=== PATIENT | female | born 1975 | race African-American/Black ===

== ENCOUNTER → 2017-04-03 | Outpatient (CLI) | payer OTHER ==
[2015-10-21 08:25] VITALS: BP 109/59
[2017-04-03 17:17] LABS: BASOPHILS % (AUTO) 0.6 % (0.2-1.0); EOSINOPHILS % (AUTO) 0.5 % (0.9-2.9); HEMATOCRIT 27.7 % (36.0-47.0); HEMOGLOBIN 8.7 g/dL (12.0-16.0); LYMPHOCYTES # (AUTO) 1.4 X10^3/uL (1.3-2.9); LYMPHOCYTES % (AUTO) 30.3 % (21.0-51.0); MEAN CORPUSCULAR HEMOGLOBIN 20.9 pg (27.0-34.0); MEAN CORPUSCULAR HGB CONC 31.5 g/dL (33.0-35.0); MEAN CORPUSCULAR VOLUME 66.5 fL (80.0-100.0); MEAN PLATELET VOLUME 7.5 fL (7.4-11.0); MONOCYTES # (AUTO) 0.3 x10^3/uL (0.3-0.8); MONOCYTES % (AUTO) 5.4 % (0.0-13.0); NEUTROPHILS # (AUTO) 2.9 x10^3/uL (2.2-4.8); NEUTROPHILS % (AUTO) 63.2 % (42.0-75.0); PLATELET COUNT 311 X10^3/uL (150.0-450.0); RED BLOOD COUNT 4.17 X10^6/uL (3.5-5.4); RED CELL DISTRIBUTION WIDTH 16.3 % (11.6-16.5); WHITE BLOOD COUNT 4.6 X10^3/uL (3.6-10.0)
[2017-04-03 17:21] LABS: BLOOD UREA NITROGEN 11 mg/dL (7-18); CALCIUM 8.9 mg/dL (8.5-10.1); CARBON DIOXIDE 31.8 mmol/L (21-32); CHLORIDE 105 mmol/L (98-107); SODIUM 141 mmol/L (136-145); eGFR BLACK RACES > 60 (>60); eGFR NON BLACK RACES > 60 (>60)
[2017-04-03 17:45] LABS: HYPOCHROMASIA 2+; MICROCYTOSIS 1+; PLATELET MORPHOLOGY COMMENT NORMAL (NORMAL)
[2017-04-03 17:46] LABS: POIKILOCYTOSIS 1+
== END ==
LOC: LAB 17:00
PROVIDERS: ATTEND Internal Medicine
DX: D64.89 Other specified anemias (principal)
CPT/HCPCS: 36415; 80048; 85025

== ENCOUNTER 2017-10-14 02:34 | Emergency (ER) | payer OTHER ==
[2017-10-14 02:52] VITALS: BP 113/56; BMI 24.1
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
[2017-10-14] MEDS ORDERED: TORADOL 60 MG VIAL IM ONE (03:17)
[2017-10-14] MEDS ORDERED: TORADOL 60 MG VIAL ONE (03:36)
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
== END 2017-10-14 04:15 | disposition home or self-care (01) ==
LOC: ER 02:34
DX: M54.89 Other dorsalgia (principal)
CPT/HCPCS: 72072; 96372; 99282; 99283; J1885

== ENCOUNTER 2017-10-20 08:03 | Emergency (ER) | payer OTHER ==
[2017-10-20 08:09] VITALS: BP 114/55; BMI 21.9
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
[2017-10-20] MEDS ORDERED: TORADOL 60 MG VIAL IM ONE (08:41)
[2017-10-20] MEDS ORDERED: NORFLEX INJ IM ONE (08:41)
[2017-10-20] MEDS ORDERED: NORFLEX INJ ONE (08:44)
[2017-10-20] MEDS ORDERED: TORADOL 60 MG VIAL ONE (08:44)
--- NOTE | 2017-10-20 09:40 | CT ---
HISTORY: Back pain Study: CT lumbar spine without contrast Comparison: None Technique: Multiple axial images of the lumbar spine were obtained from the thoracolumbar junction t o the sacrum without the administration of IV contrast. Sagittal and coronal reformats were performe d and reviewed. Findings: The lumbar vertebral body heights are relatively maintained. No evidence of acute displaced fracture or significant subluxation is identified. Degenerate facet changes are seen throughout the lumbar spi ne. Intervertebral disc space narrowing and vacuum disc phenomenon are noted at L5/S1. Multilevel ost eophytosis is demonstrated as well. Postsurgical changes of the epigastric region are noted. If symp toms or clinical concern persist correlation with MRI may be helpful. IMPRESSION: 1. Degenerative changes as noted above. Reported By:
--- NOTE | 2017-10-20 09:45 | CT ---
HISTORY: Back pain Study: CT thoracic spine without contrast Comparison: Thoracic spine radiographs performed on October 14, 2017 Technique: Multiple axial images of the thoracic spine were obtained from the thoracic inlet to the t horacolumbar junction. Sagittal and coronal reconstructions were performed and reviewed. Findings: The thoracic vertebral body heights are relatively maintained. No evidence for acute cortical disrup tion or significant subluxation identified. Degenerate facet changes are seen throughout the thoraci c spine. Multilevel intervertebral disc space narrowing and osteophytosis are also demonstrated. Pos tsurgical changes of the epigastric region are noted. If symptoms or clinical concern persist correla tion with MRI may be helpful. IMPRESSION: 1. Degenerative changes as noted above. Reported By:
== END 2017-10-20 09:56 | disposition home or self-care (01) ==
LOC: ER 08:20
DX: S23.3XXA Sprain of ligaments of thoracic spine, initial encounter (principal); S39.012A Strain of muscle, fascia and tendon of lower back, initial encounter; V89.2XXA Person injured in unspecified motor-vehicle accident, traffic, initial encounter
CPT/HCPCS: 72128; 72131; 96372; 99283; J1885; J2360